=== PATIENT | male | born 1985 | race Hispanic/Latino ===

== ENCOUNTER → 2024-10-08 | Outpatient (CLI) | payer BC ==
[2024-10-08 22:13] VITALS: PULSE 90; RESP 16
[2024-10-08 23:00] VITALS: PULSE 78; RESP 4
[2024-10-08 23:30] VITALS: PULSE 62; RESP 6
[2024-10-09] VITALS (10 sets, daily range): PULSE 60–82; RESP 4–12
== END | disposition home or self-care (01) ==
LOC: SLP 20:33
PROVIDERS: ATTEND Nurse Practitioner Family
DX: G47.33 Obstructive sleep apnea (adult) (pediatric) (principal)
CPT/HCPCS: 95810